=== PATIENT | male | born 1955 | race Caucasian/White ===

== ENCOUNTER 2020-08-21 11:45 | Observation (INO) ==
[2020-08-21 13:00] LABS: Basophils # 0.1 K/mcL (0.0-0.2); Basophils % 0.5 %; Eosinophils # 0.2 K/mcL (0.0-0.6); Hematocrit 28.8 % (37.5-50.1); Hemoglobin 9.4 g/dL (12.9-16.9); Immature Granulocytes % 0.7 % (0-4); Lymphocytes # 2.1 K/mcL (0.6-4.6); Lymphocytes % 9.8 %; Mean Corpuscular HGB Conc 32.6 g/dL (31.6-35.5); Mean Corpuscular Hemoglobin 27.6 pg (28.0-33.3); Mean Corpuscular Volume 84.7 fL (83.0-100.0); Mean Platelet Volume 8.7 fL (9.4-12.4); Monocytes # 1.5 K/mcL (0.0-1.3); Monocytes % 7.3 %; Neutrophils # 16.8 K/mcL (1.6-8.9); Platelet Count 609 K/mcL (140-400); Red Cell Distribution Width 13.8 % (11.5-14.5); Segmented Neutrophils % 80.7 %; White Blood Count 20.8 K/mcL (4.3-11.1)
[2020-08-21 13:04] LABS: INR 1.3; Prothrombin Time 15.3 Seconds (9.4-12.1)
[2020-08-21 13:06] LABS: Activated Partial Thrombo Time 36.6 Seconds (26.0-36.0)
[2020-08-21 13:07] LABS: Bacteria,Urine Few per hpf (None-Few); Bilirubin,Urine Negative (Negative); Blood,Urine Large (Negative); Clarity,Urine Turbid (Clear); Color,Urine Light-Yellow (Yellow); Glucose,Urine (UA) Normal (Normal); Ketones,Urine Negative (Negative); Leukocyte Esterase,Urine Moderate (Negative); Nitrite,Urine Negative (Negative); Protein,Urine 30 mg/dL (Neg-Trace); RBC,Urine TNTC per hpf (0-3); Specific Gravity,Urine 1.009 (1.010-1.025); Urobilinogen,Urine Normal (Normal); WBC,Urine 15-30 per hpf (0-3)
[2020-08-21 13:17] LABS: BUN/Creatinine Ratio 15 (6-26); Blood Urea Nitrogen 16 mg/dL (8-23); Calcium 9.6 mg/dL (8.6-10.3); Carbon Dioxide 27 mEq/L (23-29); Chloride 97 mEq/L (98-107); Glucose 105 mg/dL (70-105); Osmolality,Calculated 276 (280-300); Potassium 4.1 mEq/L (3.5-5.1); Sodium 132 mEq/L (136-145); eGFR For African Americans > 60 (> 60); eGFR For Non-African Americans > 60 (> 60)
[2020-08-21] MEDS ORDERED: levoFLOXacin 750 MG/150 ML 750 MG/150 ML BAG IVPB ONE (13:35)
[2020-08-21] MEDS ORDERED: Gadolinium Contrast Agent (WT Based) IV PRN ×2 (15:01→16:01)
[2020-08-21] MEDS ORDERED: Naloxone 0.4 MG/ML INJ IVP PRN (15:03)
[2020-08-21] MEDS ORDERED: Ondansetron 4 MG/2 ML VIAL IVP PRN (15:03)
[2020-08-21] MEDS: QUEtiapine Fumarate 25 MG TABLET PO SCH (18:38)
[2020-08-21] MEDS: Piperacillin/Tazobactam 3.375 GM in 0.9 % Sodium Chloride Mini Bag 100 ML IVPB SCH (18:38)
[2020-08-21] MEDS: Divalproex Sodium 125 MG CAPSULE PO SCH ×2 (18:38→20:03)
[2020-08-21] MEDS: 0.9 % Sodium Chloride 1,000 ML IVC SCH (18:38)
[2020-08-21] MEDS ORDERED: Divalproex Sodium 125 MG CAPSULE PO SCH (21:00)
[2020-08-21] MEDS ORDERED: Melatonin 3 MG TABLET PO SCH (21:00)
[2020-08-21] MEDS ORDERED: QUEtiapine Fumarate 25 MG TABLET PO SCH (21:00)
[2020-08-22] MEDS: Piperacillin/Tazobactam 3.375 GM in 0.9 % Sodium Chloride Mini Bag 100 ML IVPB SCH ×3 (00:02→17:44)
[2020-08-22 02:02] LABS: Basophils # 0.1 K/mcL (0.0-0.2); Basophils % 0.5 %; Eosinophils # 0.4 K/mcL (0.0-0.6); Eosinophils % 2.2 %; Hematocrit 28.8 % (37.5-50.1); Hemoglobin 9.1 g/dL (12.9-16.9); Lymphocytes # 2.5 K/mcL (0.6-4.6); Lymphocytes % 13.2 %; Mean Corpuscular HGB Conc 31.6 g/dL (31.6-35.5); Mean Corpuscular Hemoglobin 27.1 pg (28.0-33.3); Mean Corpuscular Volume 85.7 fL (83.0-100.0); Mean Platelet Volume 8.8 fL (9.4-12.4); Monocytes # 1.9 K/mcL (0.0-1.3); Monocytes % 10.1 %; Neutrophils # 13.7 K/mcL (1.6-8.9); Platelet Count 604 K/mcL (140-400); Red Blood Count 3.36 M/mcL (4.19-5.50); Red Cell Distribution Width 14.1 % (11.5-14.5); White Blood Count 18.8 K/mcL (4.3-11.1)
[2020-08-22 02:24] LABS: BUN/Creatinine Ratio 12 (6-26); Blood Urea Nitrogen 15 mg/dL (8-23); Calcium 9.1 mg/dL (8.6-10.3); Carbon Dioxide 28 mEq/L (23-29); Chloride 98 mEq/L (98-107); Glucose 89 mg/dL (70-105); Osmolality,Calculated 282 (280-300); Phosphorous 4.5 mg/dL (2.7-4.5); Potassium 4.2 mEq/L (3.5-5.1); Sodium 136 mEq/L (136-145); eGFR For African Americans > 60 (> 60); eGFR For Non-African Americans 57 (> 60)
[2020-08-22] MEDS: 0.9 % Sodium Chloride 1,000 ML IVC SCH (06:02)
[2020-08-22] MEDS ORDERED: (Buprenorphine Hcl/Naloxone Hcl [Suboxone 8 Mg-2 Mg]) SL SCH (09:00)
[2020-08-22] MEDS: Divalproex Sodium 125 MG CAPSULE PO SCH ×3 (09:41→21:34)
[2020-08-22] MEDS ORDERED: Isovue-370 500 ML BOTTLE IVP ONE (11:53)
[2020-08-22] MEDS ORDERED: Gadolinium Contrast Agent (WT Based) IV PRN (11:54)
[2020-08-22] MEDS ORDERED: Piperacillin/Tazobactam 3.375 GM VIAL ONE (16:51)
[2020-08-22] MEDS: QUEtiapine Fumarate 25 MG TABLET PO SCH (17:45)
[2020-08-22] MEDS: (Buprenorphine Hcl/Naloxone Hcl [Suboxone 8 Mg-2 Mg]) SL SCH (21:34)
[2020-08-23] MEDS: Piperacillin/Tazobactam 3.375 GM in 0.9 % Sodium Chloride Mini Bag 100 ML IVPB SCH ×3 (00:17→16:58)
[2020-08-23 02:11] LABS: Basophils # 0.1 K/mcL (0.0-0.2); Basophils % 0.6 %; Eosinophils # 0.3 K/mcL (0.0-0.6); Eosinophils % 1.8 %; Hematocrit 28.5 % (37.5-50.1); Hemoglobin 9.1 g/dL (12.9-16.9); Immature Granulocytes % 0.9 % (0-4); Lymphocytes # 2.1 K/mcL (0.6-4.6); Lymphocytes % 11.5 %; Mean Corpuscular HGB Conc 31.9 g/dL (31.6-35.5); Mean Corpuscular Hemoglobin 27.4 pg (28.0-33.3); Mean Corpuscular Volume 85.8 fL (83.0-100.0); Mean Platelet Volume 8.6 fL (9.4-12.4); Monocytes # 1.5 K/mcL (0.0-1.3); Monocytes % 8.6 %; Neutrophils # 13.7 K/mcL (1.6-8.9); Platelet Count 591 K/mcL (140-400); Red Blood Count 3.32 M/mcL (4.19-5.50); Segmented Neutrophils % 76.6 %; White Blood Count 17.9 K/mcL (4.3-11.1)
[2020-08-23 02:33] LABS: BUN/Creatinine Ratio 11 (6-26); Blood Urea Nitrogen 14 mg/dL (8-23); Calcium 9.4 mg/dL (8.6-10.3); Carbon Dioxide 26 mEq/L (23-29); Chloride 99 mEq/L (98-107); Glucose 92 mg/dL (70-105); Magnesium 2.1 mg/dL (1.6-2.6); Osmolality,Calculated 280 (280-300); Phosphorous 3.8 mg/dL (2.7-4.5); Potassium 3.7 mEq/L (3.5-5.1); Sodium 135 mEq/L (136-145); eGFR For African Americans > 60 (> 60); eGFR For Non-African Americans 56 (> 60)
[2020-08-23 07:41] VITALS: BP 124/81
[2020-08-23] MEDS: Divalproex Sodium 125 MG CAPSULE PO SCH ×2 (08:26→17:03)
[2020-08-23] MEDS: (Buprenorphine Hcl/Naloxone Hcl [Suboxone 8 Mg-2 Mg]) SL SCH (08:46)
[2020-08-23] MEDS ORDERED: FLU Vac QV 20-21 (6Month+)/PF 0.5 ML SYRINGE IM ONE (16:19)
[2020-08-23] MEDS: QUEtiapine Fumarate 25 MG TABLET PO SCH (17:03)
== END 2020-08-23 18:33 | disposition home health service (06) ==
LOC: EMEROOARM 11:45 → 3ANU 11:45
PROVIDERS: ADMIT Pharmacist; ATTEND Pharmacist

== ENCOUNTER 2021-02-03 18:18 | Observation (INO) ==
[2021-02-03] MEDS ORDERED: Ondansetron 4 MG/2 ML VIAL IVP ONE (19:32)
[2021-02-03] MEDS ORDERED: 0.9 % Sodium Chloride 1,000 ML IVC ONE (19:32)
[2021-02-03] MEDS ORDERED: Morphine Sulfate 2 MG/ML SYRINGE IVP ONE (19:32)
[2021-02-03] MEDS ORDERED: Isovue-370 500 ML BOTTLE IVP ONE (19:33)
[2021-02-03 19:41] LABS: Hematocrit 39.1 % (37.5-50.1)
[2021-02-03 19:42] LABS: Mean Corpuscular HGB Conc 33.2 g/dL (31.6-35.5); Mean Corpuscular Hemoglobin 29.3 pg (28.0-33.3); Mean Corpuscular Volume 88.3 fL (83.0-100.0); Mean Platelet Volume 9.6 fL (9.4-12.4); Nucleated Red Blood Cells 0.2 /100 WBC (0); Platelet Count 661 K/mcL (140-400); Red Blood Count 4.43 M/mcL (4.19-5.50); Red Cell Distribution Width 16.2 % (11.5-14.5); White Blood Count 26.3 K/mcL (4.3-11.1)
[2021-02-03 19:48] LABS: Bilirubin,Urine Negative (Negative); Blood,Urine Negative (Negative); Clarity,Urine Clear (Clear); Color,Urine Yellow (Yellow); Glucose,Urine (UA) Normal (Normal); Ketones,Urine Negative (Negative); Leukocyte Esterase,Urine Negative (Negative); Nitrite,Urine Negative (Negative); Protein,Urine Trace mg/dL (Neg-Trace); Specific Gravity,Urine 1.029 (1.010-1.025); Urobilinogen,Urine Normal (Normal)
[2021-02-03 20:01] LABS: Alanine Aminotransferase 32 Units/L (7-52); Albumin/Globulin Ratio 1.3 (1.1-2.2); Alkaline Phosphatase 93 Units/L (34-104); Amylase 62 Units/L (29-103); Aspartate Amino Transferase 19 Units/L (13-39); BUN/Creatinine Ratio 16 (6-26); Bilirubin,Indirect 0.2 mg/dL (0.0-1.0); Bilirubin,Total 0.2 mg/dL (0.3-1.0); Blood Urea Nitrogen 20 mg/dL (8-23); Calcium 9.6 mg/dL (8.6-10.3); Carbon Dioxide 28 mEq/L (23-29); Chloride 103 mEq/L (98-107); Globulin 3.2 g/dL (2.4-3.5); Glucose 152 mg/dL (70-105); Lipase 69 Units/L (11-82); Osmolality,Calculated 294 (280-300); Potassium 3.9 mEq/L (3.5-5.1); Sodium 139 mEq/L (136-145); Total Protein 7.2 g/dL (6.4-8.9); eGFR For African Americans > 60 (> 60); eGFR For Non-African Americans 59 (> 60)
[2021-02-03 20:04] LABS: Eosinophils # 0.5 K/mcL (0.0-0.6); Lymphocytes # 5.8 K/mcL (0.6-4.6); Monocytes # 1.1 K/mcL (0.0-1.3); Neutrophils # 17.4 K/mcL (1.6-8.9)
[2021-02-03] MEDS ORDERED: levoFLOXacin 750 MG/150 ML 750 MG/150 ML BAG IVPB ONE (23:21)
[2021-02-03] MEDS ORDERED: Acetaminophen 325 MG TABLET PO PRN (23:42)
[2021-02-03] MEDS ORDERED: Naloxone 0.4 MG/ML INJ IVP PRN (23:42)
[2021-02-03] MEDS ORDERED: Melatonin 3 MG TABLET PO PRN (23:42)
[2021-02-03] MEDS ORDERED: Ondansetron 4 MG/2 ML VIAL IVP PRN (23:42)
[2021-02-03] MEDS ORDERED: 0.9 % Sodium Chloride 1,000 ML IVC SCH (23:45)
[2021-02-04 01:13] LABS: Adenovirus Not Detected (Not Detect); Bordetella Pertussis Not Detected (Not Detect); Chlamydophila pneumoniae Not Detected (Not Detect); Coronavirus 229E Not Detected (Not Detect); Coronavirus HKU1 Not Detected (Not Detect); Coronavirus NL63 Not Detected (Not Detect); Coronavirus OC43 Not Detected (Not Detect); Human Metapneumovirus Not Detected (Not Detect); Human Rhinovirus/Enterovirus Not Detected (Not Detect); Influenza A Subtype 2009 H1 Not Detected (Not Detect); Influenza B Not Detected (Not Detect); Mycoplasma pneumoniae Not Detected (Not Detect); Parainfluenza Virus 1 Not Detected (Not Detect); Parainfluenza Virus 2 Not Detected (Not Detect); Parainfluenza Virus 3 Not Detected (Not Detect); Parainfluenza Virus 4 Not Detected (Not Detect); Respiratory Syncytial Virus Not Detected (Not Detect); SARS-CoV-2 Not Detected (Not Detect)
[2021-02-04 03:00] LABS: Hematocrit 38.6 % (37.5-50.1); Hemoglobin 12.5 g/dL (12.9-16.9); Mean Corpuscular HGB Conc 32.4 g/dL (31.6-35.5); Mean Corpuscular Hemoglobin 28.3 pg (28.0-33.3); Mean Corpuscular Volume 87.3 fL (83.0-100.0); Platelet Count 667 K/mcL (140-400); Red Blood Count 4.42 M/mcL (4.19-5.50); Red Cell Distribution Width 16.4 % (11.5-14.5); White Blood Count 28.2 K/mcL (4.3-11.1)
[2021-02-04 03:18] LABS: BUN/Creatinine Ratio 15 (6-26); Blood Urea Nitrogen 18 mg/dL (8-23); Calcium 9.5 mg/dL (8.6-10.3); Carbon Dioxide 26 mEq/L (23-29); Chloride 105 mEq/L (98-107); Glucose 103 mg/dL (70-105); Osmolality,Calculated 290 (280-300); Sodium 139 mEq/L (136-145); eGFR For African Americans > 60 (> 60); eGFR For Non-African Americans > 60 (> 60)
[2021-02-04] MEDS: *HR* Heparin 5,000 UNIT/ML VIAL SQ SCH ×3 (06:47→20:19)
[2021-02-04] MEDS: *HR* OxyCODONE Immed Rel 5 MG TABLET PO PRN ×2 (10:35→16:30)
[2021-02-04] MEDS ORDERED: Melatonin 3 MG TABLET PO PRN (13:51)
[2021-02-04] MEDS: Piperacillin/Tazobactam 3.375 GM in 0.9 % Sodium Chloride Mini Bag 100 ML IVPB SCH (16:16)
[2021-02-04] MEDS: Valproic Acid Oral Soln 250 MG/5 ML UDC PO SCH (20:19)
[2021-02-04] MEDS ORDERED: QUEtiapine Fumarate 25 MG TABLET PO SCH (21:00)
[2021-02-05] MEDS: Piperacillin/Tazobactam 3.375 GM in 0.9 % Sodium Chloride Mini Bag 100 ML IVPB SCH ×2 (00:16→07:38)
[2021-02-05] MEDS: *HR* Heparin 5,000 UNIT/ML VIAL SQ SCH ×2 (05:37→13:18)
[2021-02-05 06:04] LABS: Hemoglobin 12.3 g/dL (12.9-16.9); Mean Corpuscular HGB Conc 33.2 g/dL (31.6-35.5); Mean Corpuscular Hemoglobin 28.6 pg (28.0-33.3); Mean Platelet Volume 10.1 fL (9.4-12.4); Platelet Count 634 K/mcL (140-400); Red Cell Distribution Width 16.3 % (11.5-14.5); White Blood Count 22.7 K/mcL (4.3-11.1)
[2021-02-05 08:22] LABS: BUN/Creatinine Ratio 10 (6-26); Blood Urea Nitrogen 13 mg/dL (8-23); Calcium 9.1 mg/dL (8.6-10.3); Carbon Dioxide 28 mEq/L (23-29); Chloride 103 mEq/L (98-107); Glucose 91 mg/dL (70-105); Osmolality,Calculated 284 (280-300); Potassium 3.9 mEq/L (3.5-5.1); Sodium 137 mEq/L (136-145); eGFR For African Americans > 60 (> 60); eGFR For Non-African Americans 57 (> 60)
[2021-02-05] MEDS: Valproic Acid Oral Soln 250 MG/5 ML UDC PO SCH (08:24)
[2021-02-05] MEDS: *HR* OxyCODONE Immed Rel 5 MG TABLET PO PRN (09:49)
[2021-02-05 11:00] VITALS: BP 158/94
== END 2021-02-05 15:56 | disposition home or self-care (01) ==
LOC: 3ANU 18:18 → EMEROOARM 18:18 → SUATTDRO 02-04 01:17 → 3ANU 02-04 02:19
PROVIDERS: ADMIT Student in an Organized Health Care Education/Training Program; ATTEND Family Medicine

== ENCOUNTER 2021-03-24 19:11 | Observation (INO) ==
[2021-03-24] MEDS ORDERED: *HR* HYDROmorphone (PF) 1 MG/ML SYRINGE IVP ONE (21:12)
[2021-03-24 21:17] LABS: Mean Platelet Volume 9.8 fL (9.4-12.4)
[2021-03-24 21:19] LABS: Hematocrit 33.6 % (37.5-50.1); Hemoglobin 10.7 g/dL (12.9-16.9); Immature Platelets 3.1 % (1.1-6.1); Mean Corpuscular HGB Conc 31.8 g/dL (31.6-35.5); Mean Corpuscular Hemoglobin 30.2 pg (28.0-33.3); Mean Corpuscular Volume 94.9 fL (83.0-100.0); Nucleated Red Blood Cells 0.1 /100 WBC (0); Platelet Count 604 K/mcL (140-400); Red Blood Count 3.54 M/mcL (4.19-5.50); Red Cell Distribution Width 18.6 % (11.5-14.5)
[2021-03-24 21:29] LABS: White Blood Count 35.8 K/mcL (4.3-11.1)
[2021-03-24 21:37] LABS: Alanine Aminotransferase 16 Units/L (7-52); Albumin 4.1 g/dL (3.5-5.7); Albumin/Globulin Ratio 1.2 (1.1-2.2); Alkaline Phosphatase 106 Units/L (34-104); Aspartate Amino Transferase 14 Units/L (13-39); BUN/Creatinine Ratio 16 (6-26); Bilirubin,Indirect 0.3 mg/dL (0.0-1.0); Bilirubin,Total 0.3 mg/dL (0.3-1.0); Blood Urea Nitrogen 23 mg/dL (8-23); Calcium 9.8 mg/dL (8.6-10.3); Carbon Dioxide 26 mEq/L (23-29); Chloride 101 mEq/L (98-107); Globulin 3.4 g/dL (2.4-3.5); Glucose 86 mg/dL (70-105); Lactate Dehydrogenase 217 Units/L (140-271); Lipase 32 Units/L (11-82); Osmolality,Calculated 289 (280-300); Sodium 138 mEq/L (136-145); Total Protein 7.5 g/dL (6.4-8.9); eGFR For African Americans > 60 (> 60); eGFR For Non-African Americans 50 (> 60)
[2021-03-24] MEDS ORDERED: 0.9 % Sodium Chloride 1,000 ML IVC ONE (21:44)
[2021-03-24] MEDS ORDERED: Piperacillin/Tazobactam 3.375 GM in Water for inj. (sterile) 20 ML IVP STA (21:47)
[2021-03-24] MEDS ORDERED: Vancomycin 1,500 MG/265 ML IV.SOLN IVPB STA (21:48)
[2021-03-24 21:49] LABS: Bacteria,Urine Few per hpf (None-Few); Bilirubin,Urine Negative (Negative); Blood,Urine Negative (Negative); Clarity,Urine Turbid (Clear); Color,Urine Yellow (Yellow); Glucose,Urine (UA) Normal (Normal); Ketones,Urine Trace mg/dL (Negative); Leukocyte Esterase,Urine Moderate (Negative); Mucus,Urine Few per lpf (None-Few); Nitrite,Urine Negative (Negative); Protein,Urine 70 mg/dL (Neg-Trace); Urobilinogen,Urine Normal (Normal); WBC,Urine 50-100 per hpf (0-3)
[2021-03-24 22:11] LABS: Eosinophils # 0.7 K/mcL (0.0-0.6); Lymphocytes # 3.9 K/mcL (0.6-4.6); Monocytes # 1.1 K/mcL (0.0-1.3); Neutrophils # 27.6 K/mcL (1.6-8.9)
[2021-03-24 22:12] LABS: Anisocytosis 1+ (Not Present); Platelet Estimate Marked Increase (Normal)
[2021-03-24 22:13] LABS: Toxic Granulation Present (Not Present)
[2021-03-25] MEDS ORDERED: NON-FORMULARY MEDICATION 1 EACH EACH (Melatonin 5 MG Tablet) PO PRN (00:10)
[2021-03-25] MEDS ORDERED: Melatonin 3 MG TABLET PO PRN (00:16)
[2021-03-25] MEDS ORDERED: Ondansetron 4 MG/2 ML VIAL IVP PRN (00:16)
[2021-03-25] MEDS ORDERED: Naloxone 0.4 MG/ML INJ IVP PRN (00:16)
[2021-03-25] MEDS: 0.9 % Sodium Chloride 1,000 ML IVC SCH ×2 (00:52→17:31)
[2021-03-25] MEDS: Nicotine 14 MG PATCH.TD24 TD SCH ×2 (00:59→20:39)
[2021-03-25] MEDS: Piperacillin/Tazobactam 3.375 GM in 0.9 % Sodium Chloride Mini Bag 100 ML IVPB SCH ×2 (05:42→17:31)
[2021-03-25 05:54] LABS: Hematocrit 31.9 % (37.5-50.1); Nucleated Red Blood Cells 0.1 /100 WBC (0)
[2021-03-25 05:55] LABS: Eosinophils # 0.3 K/mcL (0.0-0.6); Hemoglobin 10.4 g/dL (12.9-16.9); Mean Corpuscular HGB Conc 32.6 g/dL (31.6-35.5); Mean Corpuscular Hemoglobin 31.4 pg (28.0-33.3); Mean Corpuscular Volume 96.4 fL (83.0-100.0); Mean Platelet Volume 9.1 fL (9.4-12.4); Platelet Count 527 K/mcL (140-400); Red Blood Count 3.31 M/mcL (4.19-5.50); Red Cell Distribution Width 18.8 % (11.5-14.5); White Blood Count 28.5 K/mcL (4.3-11.1)
[2021-03-25 06:13] LABS: Albumin 3.7 g/dL (3.5-5.7); Albumin/Globulin Ratio 1.3 (1.1-2.2); Bilirubin,Total 0.3 mg/dL (0.3-1.0); Calcium 9.2 mg/dL (8.6-10.3); Globulin 2.9 g/dL (2.4-3.5); Potassium 3.8 mEq/L (3.5-5.1); Total Protein 6.6 g/dL (6.4-8.9)
[2021-03-25 06:28] LABS: Lymphocytes # 3.1 K/mcL (0.6-4.6); Monocytes # 0.9 K/mcL (0.0-1.3)
[2021-03-25 06:29] LABS: Anisocytosis 1+ (Not Present); Large Platelets Present (Not Present); Toxic Granulation Present (Not Present)
[2021-03-25 06:30] LABS: Polychromasia 1+ (Not Present)
[2021-03-25] MEDS: Divalproex (12 HR) 250 MG TABLET PO SCH ×2 (10:14→20:38)
[2021-03-25] MEDS: *HR* HYDROcodone/Acet 5/325 mg TABLET PO PRN (10:14)
[2021-03-25] MEDS: BuPROPion XL (24 HR) 150 MG TABLET PO SCH (10:14)
[2021-03-25] MEDS: lisinopriL 20 MG TABLET PO SCH (10:14)
[2021-03-25] MEDS: Multivit/Ca/Min/Fe/FA 1 TAB TABLET PO SCH (10:14)
[2021-03-25] MEDS: Vancomycin 1,500 MG/265 ML IV.SOLN IVPB SCH (10:21)
[2021-03-25] MEDS: QUEtiapine Fumarate 25 MG TABLET PO SCH (20:39)
[2021-03-25] MEDS: Sennosides/Docusate Sodium TABLET PO SCH (20:39)
[2021-03-26 01:06] LABS: Hematocrit 28.7 % (37.5-50.1); Hemoglobin 9.2 g/dL (12.9-16.9); Mean Corpuscular HGB Conc 32.1 g/dL (31.6-35.5); Mean Corpuscular Hemoglobin 30.8 pg (28.0-33.3); Mean Platelet Volume 9.6 fL (9.4-12.4); Nucleated Red Blood Cells 0.1 /100 WBC (0); Platelet Count 566 K/mcL (140-400); Red Blood Count 2.99 M/mcL (4.19-5.50); Red Cell Distribution Width 18.2 % (11.5-14.5); White Blood Count 27.7 K/mcL (4.3-11.1)
[2021-03-26 01:24] LABS: Anisocytosis 1+ (Not Present); Eosinophils # 0.6 K/mcL (0.0-0.6); Lymphocytes # 1.7 K/mcL (0.6-4.6); Monocytes # 0.6 K/mcL (0.0-1.3); Neutrophils # 23.3 K/mcL (1.6-8.9); Platelet Estimate Increased (Normal)
[2021-03-26] MEDS: Piperacillin/Tazobactam 3.375 GM in 0.9 % Sodium Chloride Mini Bag 100 ML IVPB SCH ×2 (01:35→14:47)
[2021-03-26] MEDS: 0.9 % Sodium Chloride 1,000 ML IVC SCH ×3 (01:36→19:34)
[2021-03-26] MEDS: BuPROPion XL (24 HR) 150 MG TABLET PO SCH (11:04)
[2021-03-26] MEDS: Divalproex (12 HR) 250 MG TABLET PO SCH ×2 (11:04→20:46)
[2021-03-26] MEDS: Multivit/Ca/Min/Fe/FA 1 TAB TABLET PO SCH (11:05)
[2021-03-26] MEDS: lisinopriL 20 MG TABLET PO SCH (11:05)
[2021-03-26] MEDS: Vancomycin 1,500 MG/265 ML IV.SOLN IVPB SCH (14:48)
[2021-03-26] MEDS: *HR* HYDROcodone/Acet 5/325 mg TABLET PO PRN (16:55)
[2021-03-26] MEDS: QUEtiapine Fumarate 25 MG TABLET PO SCH (20:46)
[2021-03-26] MEDS: Sennosides/Docusate Sodium TABLET PO SCH (20:46)
[2021-03-26] MEDS: Nicotine 14 MG PATCH.TD24 TD SCH (20:46)
[2021-03-27] MEDS: *HR* HYDROcodone/Acet 5/325 mg TABLET PO PRN ×2 (05:39→16:01)
[2021-03-27 06:17] LABS: Hematocrit 29.5 % (37.5-50.1); Hemoglobin 9.4 g/dL (12.9-16.9); Mean Corpuscular HGB Conc 31.9 g/dL (31.6-35.5); Mean Corpuscular Volume 94.2 fL (83.0-100.0); Mean Platelet Volume 9.2 fL (9.4-12.4); Nucleated Red Blood Cells 0.1 /100 WBC (0); Platelet Count 610 K/mcL (140-400); Red Blood Count 3.13 M/mcL (4.19-5.50); Red Cell Distribution Width 18.3 % (11.5-14.5)
[2021-03-27 06:35] LABS: BUN/Creatinine Ratio 6 (6-26); Blood Urea Nitrogen 8 mg/dL (8-23); Calcium 9.5 mg/dL (8.6-10.3); Carbon Dioxide 27 mEq/L (23-29); Chloride 103 mEq/L (98-107); Glucose 89 mg/dL (70-105); Osmolality,Calculated 284 (280-300); Potassium 4.1 mEq/L (3.5-5.1); Sodium 138 mEq/L (136-145); eGFR For African Americans > 60 (> 60); eGFR For Non-African Americans 52 (> 60)
[2021-03-27 06:48] LABS: Lymphocytes # 2.2 K/mcL (0.6-4.6); Neutrophils # 17.6 K/mcL (1.6-8.9); Platelet Estimate Marked Increase (Normal)
[2021-03-27] MEDS: 0.9 % Sodium Chloride 1,000 ML IVC SCH ×3 (08:11→19:01)
[2021-03-27] MEDS: Multivit/Ca/Min/Fe/FA 1 TAB TABLET PO SCH (08:14)
[2021-03-27] MEDS: Divalproex (12 HR) 250 MG TABLET PO SCH ×2 (08:14→20:33)
[2021-03-27] MEDS: BuPROPion XL (24 HR) 150 MG TABLET PO SCH (08:14)
[2021-03-27] MEDS: lisinopriL 20 MG TABLET PO SCH (08:14)
[2021-03-27] MEDS: Nicotine 14 MG PATCH.TD24 TD SCH (20:33)
[2021-03-27] MEDS: Sennosides/Docusate Sodium TABLET PO SCH (20:33)
[2021-03-27] MEDS: QUEtiapine Fumarate 25 MG TABLET PO SCH (20:33)
[2021-03-28] MEDS: *HR* HYDROcodone/Acet 5/325 mg TABLET PO PRN (01:42)
[2021-03-28 02:18] LABS: Hematocrit 27.6 % (37.5-50.1); Mean Corpuscular HGB Conc 32.6 g/dL (31.6-35.5); Mean Corpuscular Hemoglobin 30.3 pg (28.0-33.3); Mean Corpuscular Volume 92.9 fL (83.0-100.0); Mean Platelet Volume 8.9 fL (9.4-12.4); Nucleated Red Blood Cells 0.2 /100 WBC (0); Platelet Count 563 K/mcL (140-400); Red Blood Count 2.97 M/mcL (4.19-5.50); White Blood Count 22.2 K/mcL (4.3-11.1)
[2021-03-28 02:34] LABS: BUN/Creatinine Ratio 6 (6-26); Blood Urea Nitrogen 7 mg/dL (8-23); Calcium 9.2 mg/dL (8.6-10.3); Carbon Dioxide 23 mEq/L (23-29); Chloride 105 mEq/L (98-107); Glucose 84 mg/dL (70-105); Osmolality,Calculated 281 (280-300); Potassium 3.8 mEq/L (3.5-5.1); Sodium 137 mEq/L (136-145); eGFR For African Americans > 60 (> 60); eGFR For Non-African Americans > 60 (> 60)
[2021-03-28] MEDS: 0.9 % Sodium Chloride 1,000 ML IVC SCH ×4 (03:02→23:28)
[2021-03-28 03:09] LABS: Lymphocytes # 2.2 K/mcL (0.6-4.6); Monocytes # 0.9 K/mcL (0.0-1.3); Neutrophils # 19.1 K/mcL (1.6-8.9); Platelet Estimate Increased (Normal); Toxic Granulation Present (Not Present)
[2021-03-28] MEDS: Acetaminophen 325 MG TABLET PO PRN ×2 (06:49→13:30)
[2021-03-28] MEDS: lisinopriL 20 MG TABLET PO SCH (08:40)
[2021-03-28] MEDS: Multivit/Ca/Min/Fe/FA 1 TAB TABLET PO SCH (08:40)
[2021-03-28] MEDS: Divalproex (12 HR) 250 MG TABLET PO SCH ×2 (08:40→20:54)
[2021-03-28] MEDS: BuPROPion XL (24 HR) 150 MG TABLET PO SCH (08:40)
[2021-03-28] MEDS: Piperacillin/Tazobactam 3.375 GM in 0.9 % Sodium Chloride Mini Bag 100 ML IVPB SCH (16:13)
[2021-03-28] MEDS: Sennosides/Docusate Sodium TABLET PO SCH (20:54)
[2021-03-28] MEDS: Nicotine 14 MG PATCH.TD24 TD SCH (20:54)
[2021-03-28] MEDS: QUEtiapine Fumarate 25 MG TABLET PO SCH (20:54)
[2021-03-29 01:22] LABS: Mean Platelet Volume 9.2 fL (9.4-12.4); Nucleated Red Blood Cells 0.1 /100 WBC (0)
[2021-03-29 01:23] LABS: Basophils # 0.3 K/mcL (0.0-0.2); Basophils % 1.2 %; Eosinophils # 0.2 K/mcL (0.0-0.6); Eosinophils % 0.6 %; Hematocrit 29.1 % (37.5-50.1); Hemoglobin 9.4 g/dL (12.9-16.9); Immature Granulocytes % 5.7 % (0-4); Lymphocytes # 2.1 K/mcL (0.6-4.6); Lymphocytes % 7.9 %; Mean Corpuscular HGB Conc 32.3 g/dL (31.6-35.5); Mean Corpuscular Hemoglobin 30.3 pg (28.0-33.3); Mean Corpuscular Volume 93.9 fL (83.0-100.0); Monocytes # 1.6 K/mcL (0.0-1.3); Monocytes % 6.1 %; Platelet Count 611 K/mcL (140-400); Red Cell Distribution Width 17.8 % (11.5-14.5); Segmented Neutrophils % 78.5 %; White Blood Count 26.7 K/mcL (4.3-11.1)
[2021-03-29 01:34] LABS: BUN/Creatinine Ratio 7 (6-26); Blood Urea Nitrogen 7 mg/dL (8-23); Calcium 9.3 mg/dL (8.6-10.3); Carbon Dioxide 20 mEq/L (23-29); Chloride 102 mEq/L (98-107); Glucose 87 mg/dL (70-105); Osmolality,Calculated 277 (280-300); Potassium 3.6 mEq/L (3.5-5.1); Sodium 135 mEq/L (136-145); eGFR For African Americans > 60 (> 60); eGFR For Non-African Americans > 60 (> 60)
[2021-03-29 02:21] LABS: Platelet Estimate Increased (Normal)
[2021-03-29] MEDS: Divalproex (12 HR) 250 MG TABLET PO SCH ×2 (08:02→20:58)
[2021-03-29] MEDS: lisinopriL 20 MG TABLET PO SCH (08:02)
[2021-03-29] MEDS: BuPROPion XL (24 HR) 150 MG TABLET PO SCH (08:02)
[2021-03-29] MEDS: Multivit/Ca/Min/Fe/FA 1 TAB TABLET PO SCH (08:02)
[2021-03-29] MEDS: 0.9 % Sodium Chloride 1,000 ML IVC SCH (08:02)
[2021-03-29] MEDS: amLODIPine 5 MG TABLET PO SCH (16:56)
[2021-03-29] MEDS: Sennosides/Docusate Sodium TABLET PO SCH (20:58)
[2021-03-29] MEDS: QUEtiapine Fumarate 25 MG TABLET PO SCH (20:58)
[2021-03-29] MEDS: Nicotine 14 MG PATCH.TD24 TD SCH (20:59)
[2021-03-30 01:06] LABS: Basophils # 0.3 K/mcL (0.0-0.2); Basophils % 1.1 %; Eosinophils # 0.3 K/mcL (0.0-0.6); Eosinophils % 1.2 %; Hematocrit 29.4 % (37.5-50.1); Hemoglobin 9.5 g/dL (12.9-16.9); Immature Granulocytes % 4.5 % (0-4); Lymphocytes # 2.1 K/mcL (0.6-4.6); Mean Corpuscular HGB Conc 32.3 g/dL (31.6-35.5); Mean Corpuscular Volume 92.7 fL (83.0-100.0); Monocytes # 1.9 K/mcL (0.0-1.3); Monocytes % 8.2 %; Neutrophils # 17.8 K/mcL (1.6-8.9); Nucleated Red Blood Cells 0.1 /100 WBC (0); Platelet Count 562 K/mcL (140-400); Red Blood Count 3.17 M/mcL (4.19-5.50); Red Cell Distribution Width 18.2 % (11.5-14.5); White Blood Count 23.5 K/mcL (4.3-11.1)
[2021-03-30] MEDS: amLODIPine 5 MG TABLET PO SCH (09:57)
[2021-03-30] MEDS: BuPROPion XL (24 HR) 150 MG TABLET PO SCH (09:57)
[2021-03-30] MEDS: Multivit/Ca/Min/Fe/FA 1 TAB TABLET PO SCH (09:57)
[2021-03-30] MEDS: lisinopriL 20 MG TABLET PO SCH (09:57)
[2021-03-30] MEDS: Divalproex (12 HR) 250 MG TABLET PO SCH ×2 (09:57→22:24)
[2021-03-30] MEDS: Acetaminophen 325 MG TABLET PO PRN (11:34)
[2021-03-30] MEDS: Nicotine 14 MG PATCH.TD24 TD SCH (22:23)
[2021-03-30] MEDS: QUEtiapine Fumarate 25 MG TABLET PO SCH (22:24)
[2021-03-30] MEDS: Sennosides/Docusate Sodium TABLET PO SCH (22:24)
[2021-03-31 06:51] VITALS: BP 134/86
[2021-03-31] MEDS: lisinopriL 20 MG TABLET PO SCH (09:25)
[2021-03-31] MEDS: amLODIPine 5 MG TABLET PO SCH (09:25)
[2021-03-31] MEDS: Multivit/Ca/Min/Fe/FA 1 TAB TABLET PO SCH (09:25)
[2021-03-31] MEDS: BuPROPion XL (24 HR) 150 MG TABLET PO SCH (09:25)
[2021-03-31] MEDS: Divalproex (12 HR) 250 MG TABLET PO SCH (09:25)
[2021-03-31 12:14] LABS: Adenovirus Not Detected (Not Detect); Bordetella Pertussis Not Detected (Not Detect); Chlamydophila pneumoniae Not Detected (Not Detect); Coronavirus 229E Not Detected (Not Detect); Coronavirus HKU1 Not Detected (Not Detect); Coronavirus NL63 Not Detected (Not Detect); Coronavirus OC43 Not Detected (Not Detect); Human Metapneumovirus Not Detected (Not Detect); Human Rhinovirus/Enterovirus Not Detected (Not Detect); Influenza A Subtype 2009 H1 Not Detected (Not Detect); Influenza B Not Detected (Not Detect); Mycoplasma pneumoniae Not Detected (Not Detect); Parainfluenza Virus 1 Not Detected (Not Detect); Parainfluenza Virus 2 Not Detected (Not Detect); Parainfluenza Virus 3 Not Detected (Not Detect); Parainfluenza Virus 4 Not Detected (Not Detect); Respiratory Syncytial Virus Not Detected (Not Detect); SARS-CoV-2 Not Detected (Not Detect)
== END 2021-03-31 13:15 | disposition other institution (70) ==
LOC: EMEROOARM 19:11 → 3NENU 19:11 → SUATTDRO 23:20 → 3NENU 03-25 00:25
PROVIDERS: ADMIT Internal Medicine; ATTEND Internal Medicine